=== PATIENT | male | born 1965 | race Two or more races ===

== ENCOUNTER → 2024-09-11 | Outpatient (BNVA) | payer OTHER, SELFPAY | END | disposition home or self-care (01) | PROVIDERS: PCP Internal Medicine; Referring Provider Internal Medicine; Visit Provider Urology | DX: N40.1 Benign prostatic hyperplasia with lower urinary tract symptoms (principal); N13.8 Other obstructive and reflux uropathy; N52.9 Male erectile dysfunction, unspecified; N41.9 Inflammatory disease of prostate, unspecified; E66.9 Obesity, unspecified; Z68.34 Body mass index [BMI] 34.0-34.9, adult | CPT/HCPCS: 81003; 99212; G0463 ==

== ENCOUNTER 2025-03-13 09:05 | Day surgery (SDC) | payer MEDICAID, SELFPAY ==
[2025-03-13] VITALS (7 sets, daily range): BP systolic 114–126; BP diastolic 75–83; PULSE 67–93; RESP 12–20; TEMP 36.2–36.9; O2SAT 95–97; BMI 31.6
--- NOTE | 2025-03-13 09:15 | EKG_ITS ---
[facility] Test Date: 2025-03-13 Pat Name: BRODIE ALEXIS Department: Room: - Gender: Male Technology Consultant: CLIFFORD : 1965 Requested By: Ayaan Ott Order Number: [id number] Reading MD: Ayaan Ott Measurements Intervals [place] Rate: 67 P: 34 ME: 171 QRS: 40 QRSD: 94 T: 31 QT: 387 QTc: 411 Interpretive Statements SINUS RHYTHM LOW QRS VOLTAGE IN PRECORDIAL LEADS No previous ECG available for comparison /[id number]/[email or web address]/[id number].pdf
--- NOTE | 2025-03-13 13:30 | SUR.PHASEII ---
7710 Patient arrived to recovery drowsy, on oxygen 5L via nasal cannula, breathing unlabored, vital signs stable, denies pain and nausea, report received from Dr. Martinez and Mariama GAINES
--- NOTE | 2025-03-13 14:42 | SUR.PHASEII ---
1442 Patient meets discharge criteria from recovery, awake and alert, breathing unlabored, vital signs stable, denies pain and nausea, patient voided in restroom and had a loose bowel movement, discharge instructions given to patient and patients friend with the assistance of the telephone asphalt coater Bridgette ID#[id number] via speaker phone and on speaker phone for patient to hear. discharge instructions signed at car side by patients friend. Patient given all his belongings prior to discharge, transported via wheelchair and left in a private vehicle.
== END 2025-03-13 14:42 | disposition home or self-care (01) ==
PROVIDERS: PCP Internal Medicine; Referring Provider Internal Medicine Gastroenterology; Visit Provider Internal Medicine Gastroenterology
PROC: 0DJD8ZZ Inspection of Lower Intestinal Tract, Via Natural or Artificial Opening Endoscopic (ICD-10-PCS; CPT 45378; 2025-03-13 09:00)
PROC: (CPT 43239; 2025-03-13 09:00)
DX: D12.3 Benign neoplasm of transverse colon (principal); D12.4 Benign neoplasm of descending colon; K64.9 Unspecified hemorrhoids; Z01.810 Encounter for preprocedural cardiovascular examination; K29.50 Unspecified chronic gastritis without bleeding
CPT/HCPCS: 45380; 93005; A4649

== ENCOUNTER → 2025-04-18 | Outpatient (BNVA) | payer MEDICAID, SELFPAY | END | disposition home or self-care (01) | PROVIDERS: Visit Provider Urology | DX: N40.1 Benign prostatic hyperplasia with lower urinary tract symptoms (principal); N13.8 Other obstructive and reflux uropathy; R35.0 Frequency of micturition; N52.9 Male erectile dysfunction, unspecified; E66.9 Obesity, unspecified; Z68.32 Body mass index [BMI] 32.0-32.9, adult; E78.00 Pure hypercholesterolemia, unspecified | CPT/HCPCS: 81003; 99212; G0463 ==

== ENCOUNTER → 2025-05-16 | Outpatient (BNVA) | payer MEDICAID, SELFPAY | END | disposition home or self-care (01) | PROVIDERS: Visit Provider Urology | DX: N40.1 Benign prostatic hyperplasia with lower urinary tract symptoms (principal); R39.12 Poor urinary stream; E78.00 Pure hypercholesterolemia, unspecified; K21.9 Gastro-esophageal reflux disease without esophagitis | CPT/HCPCS: 51741; 51798 ==